=== PATIENT | female | born 1980 | race Two or more races ===

== ENCOUNTER 2020-11-11 11:17 | Emergency (ER) | payer SELFPAY ==
[~2020-11-11] VITALS: Ht 152.4 cm; Wt 68.0 kg
[2020-11-11 11:43] LABS: Basophils # (auto) 0.1 10 ^3/uL (0-0.2); Basophils % (auto) 0.6 % (0.0-2.0); Eosinophils # (auto) 0.1 10 ^3/uL (0-0.8); Eosinophils % (auto) 0.4 % (0.0-7.0); Hematocrit 44.6 % (36.0-46.0); Hemoglobin 15.3 g/dL (12.2-16.2); Lymphocytes # (auto) 2.6 10 ^3/uL (0.4-5.4); Lymphocytes % (auto) 17.9 % (10.0-50.0); Mean Corpuscular Hemoglobin 31.4 pg (28.0-32.0); Mean Corpuscular Hgb Conc. 34.2 g/dL (32.0-36.0); Mean Corpuscular Volume 91.7 fL (80.0-100.0); Monocytes # (auto) 1.2 10 ^3/uL (0-1.3); Monocytes % (auto) 8.3 % (0.0-12.0); Neutrophils # (auto) 10.7 10 ^3/uL (1.6-8.6); Neutrophils % (auto) 72.8 % (37.0-80.0); Nucleated Red Blood Cells % 0.1 %; Red Blood Cells 4.86 10^6/uL (4.0-5.20); Red Cell Distribution Width 12.5 % (11.8-14.3); White Blood Cell 14.7 10^3/uL (4.4-10.8)
[2020-11-11 11:50] LABS: Urine Bacteria NONE SEEN /hpf (None Seen); Urine Blood 3+ /uL (Negative); Urine Mucus FEW (None Seen); Urine WBC 1345 /hpf (0 - 5); Urine WBC Clumps PRESENT /hpf (None Seen)
[2020-11-11 12:30] LABS: Calcium 8.9 mg/dL (8.5-10.1); Potassium 4.4 mmol/L (3.5-5.1)
[2020-11-11 12:33] LABS: Albumin 3.2 g/dL (3.4-5.0); BUN/Creatinine Ratio 9.9
[2020-11-11 12:36] LABS: Bilirubin, Total 1.2 mg/dL (0.2-1.0)
[2020-11-11 14:40] VITALS: BP 123/84
[2020-11-11] MEDS ORDERED: cefTRIAXone SOD 1,000 MG VL IM ONE (15:15)
[2020-11-11] MEDS ORDERED: KETOROLAC TROMETH 60MG/2ML VIAL IM ONE (15:15)
== END 2020-11-11 15:30 | disposition home or self-care (01) ==
LOC: ER 11:17
DX: N39.0 Urinary tract infection, site not specified (principal); R94.5 Abnormal results of liver function studies
CPT/HCPCS: 36415; 80053; 81001; 85025; 96372; 99284; J0696; J1885